=== PATIENT | female | born 1975 | race Caucasian/White ===

== ENCOUNTER 2019-08-29 14:07 | Emergency (ER) | payer BC ==
[~2019-08-29] VITALS: Ht 152.4 cm; Wt 80.9 kg
[2019-08-29 14:12] VITALS: Ht 152.4 cm; Wt 80.9 kg
[2019-08-29 14:55] VITALS: BP 123/73
== END 2019-08-29 14:55 | disposition home or self-care (01) ==
LOC: ED 14:07
DX: N39.0 Urinary tract infection, site not specified (principal)